=== PATIENT | female | born 1985 | race Caucasian/White ===

== ENCOUNTER 2017-09-26 10:24 | Emergency (ER) | payer MEDICAID ==
[~2017-09-26] VITALS: Ht 172.7 cm; Wt 58.0 kg
[~2017-09-26 10:24] MED LIST: ONDA4TAB6 PO; POTA10TA36 PO
[2017-09-26 10:29] VITALS: BP 154/85
== END 2017-09-26 11:12 | disposition home or self-care (01) ==
LOC: ER 10:25
DX: D17.21 Benign lipomatous neoplasm of skin and subcutaneous tissue of right arm (principal)
CPT/HCPCS: 99284

== ENCOUNTER 2019-04-21 09:59 | Emergency (ER) | payer MEDICAID ==
[~2019-04-21] VITALS: Ht 170.2 cm; Wt 68.2 kg
[2019-04-21 10:42] VITALS: BP 158/72
[2019-04-21] MEDS ORDERED: acetaminophen w/codeine (30MG) #3 tablet PO ONE (11:00)
[2019-04-21] MEDS ORDERED: ibuprofen tablet 400 MG TABLET PO ONE (11:00)
[2019-04-21 11:13] LABS: URINE HCG NEGATIVE (NEG)
[2019-04-21 11:15] LABS: CLARITY,URINE CLEAR (Clear); COLOR,URINE YELLOW (Yellow); GLUCOSE, URINE NEGATIVE (Neg); KETONES,URINE NEGATIVE (Neg); LEUKOCYTE ESTERASE ,URINE NEGATIVE (Neg); NITRITES, URINE NEGATIVE (Neg); OCCULT BLOOD,URINE NEGATIVE (Neg); PH,URINE 6.5 (4.8-8.0); PROTEIN,URINE NEGATIVE (Neg)
[2019-04-21] MEDS ORDERED: IBUP-1984 PO (11:44)
[2019-04-21] MEDS ORDERED: ibuprofen 200mg tablet PO ONE (11:55)
[2019-04-21 11:57] LABS: UA COLLECTION TYPE CLN CATCH MIDSTREAM
== END 2019-04-21 12:03 | disposition home or self-care (01) ==
LOC: ER 10:00
DX: S20.212A Contusion of left front wall of thorax, initial encounter (principal); Z79.899 Other long term (current) drug therapy; W00.0XXA Fall on same level due to ice and snow, initial encounter; Y93.01 Activity, walking, marching and hiking; Y92.89 Other specified places as the place of occurrence of the external cause; Y99.8 Other external cause status
CPT/HCPCS: 71101; 81003; 81025; 99284